=== PATIENT | male | born 1965 | race Caucasian/White ===

== ENCOUNTER 2022-04-02 13:21 | Inpatient (IN) | payer OTHER ==
[~2022-04-02] VITALS: Ht 165.1 cm; Wt 54.9 kg
--- NOTE | 2022-04-02 13:21 | NUR ---
PATIENT WHEELCHAIR ASSISTED TO BED 2.
[2022-04-02 13:24] VITALS: BP 127/78
--- NOTE | 2022-04-02 13:24 | NUR ---
PT BROUGHT TO BED 02 VIA WHEELCHAIR FROM CAR
--- NOTE | 2022-04-02 13:34 | NUR ---
56Y/O MALE BIB C/O OF "RUPTURED HERNIA" STATED THAT HE WAS DIAGNOSED WITH A HERNIA 2 YEARS AGO AND NO SURGERY WAS DONE, 2DAYS AGO NOTED BULGING IN HIS MIDDLE LOWER ABDOMEN AND TODAY INCREASED PAIN IN THE AREA. PT STATES UNCOMFORTABLE WHEN EATING; NAUSEA, NO VOMIT, NO DIFFICULTY USING THE RESTROOM. A/OX4, GCS-15; UNLABORED BREATHING, SPEAKING IN FULL SENTENCES; AMBULATORY WITHOUT ASSISTANCE. NKA PMH: HERNIA, HTN
--- NOTE | 2022-04-02 13:37 | NUR ---
ER MD AT BEDSIDE EXAMINING PT
[2022-04-02] MEDS ORDERED: MORPHINE SULFATE 4 MG/ML SYR IVP ONE (13:40)
[2022-04-02] MEDS ORDERED: NACL 0.9% 1,000 ML IV SCH (13:40)
[2022-04-02] MEDS ORDERED: ONDANSETRON 4 MG/2 ML VIAL IVP ONE (13:40)
[2022-04-02] MEDS ORDERED: NACL 0.9% 1,000 ML IV ONE (13:50)
[2022-04-02 14:20] LABS: BASOPHILS % (AUTO) 0.1 % (0.0-2.0); HEMATOCRIT 51.7 % (36-52); HEMOGLOBIN 17.3 g/dL (12.0-18.0); LYMPHOCYTES # (AUTO) 1.3 K/uL (2.0-11.5); LYMPHOCYTES % (AUTO) 8.8 % (20.5-51.1); MEAN CORPUSCULAR HEMOGLOBIN 25 pg (27-31); MEAN CORPUSCULAR HGB CONC 33 g/dL (33-37); MEAN CORPUSCULAR VOLUME 75.5 fL (80-94); MONOCYTES % (AUTO) 13.4 % (1.7-9.3); NEUTROPHILS # (AUTO) 11.5 K/uL (1.8-7.7); NEUTROPHILS % (AUTO) 77.7 % (42.2-75.2); PLATELET COUNT (AUTO) 190 K/uL (140-450); RED BLOOD CELL COUNT(AUTO) 6.86 MIL/uL (4.20-6.10); RED CELL DISTRIBUTION WIDTH 17.8 % (11.6-13.7); WHITE BLOOD COUNT (AUTO) 14.8 K/uL (4.8-10.8)
[2022-04-02 14:25] LABS: PROTHROMBIN TIME 12.7 secs (10.8-13.4)
[2022-04-02 14:27] LABS: ALBUMIN 3.7 g/dL (3.4-5.0); ANION GAP 20.8 (8-16); CARBON DIOXIDE 23.3 mmol/L (21-32); CREATININE 3.5 mg/dL (0.6-1.3); POTASSIUM 4.1 mmol/L (3.5-5.1); TOTAL BILIRUBIN 1.2 mg/dL (0.0-1.0)
--- NOTE | 2022-04-02 14:50 | NUR ---
PT TAKEN TO CT
--- NOTE | 2022-04-02 14:56 | NUR ---
PT RETURNED FROM CT
[2022-04-02] MEDS ORDERED: cefTRIAXone 1,000 MG VIAL ONE (15:04)
--- NOTE | 2022-04-02 17:11 | NUR ---
xray at bedside
--- NOTE | 2022-04-02 17:11 | NUR ---
COVID/JACINDA SWAB AND URINE COLLECTED AND WALKED TO LAB
[2022-04-02] MEDS ORDERED: DOCUSATE SODIUM 100 MG GELCAP PO PRN (17:15)
[2022-04-02] MEDS ORDERED: guaiFENesin DM 200/20 MG-10 ML 10 ML UDC PO PRN (17:15)
[2022-04-02] MEDS ORDERED: MORPHINE SULFATE 2 MG/ML SYR IVP PRN (17:15)
[2022-04-02] MEDS ORDERED: ZOLPIDEM 5 MG TAB PO PRN (17:15)
[2022-04-02] MEDS ORDERED: HYDROcodone/APAP 7.5/325 MG 1 TAB PO PRN (17:15)
[2022-04-02] MEDS ORDERED: POTASSIUM CHLORIDE 10 MEQ TABER PO PRN (17:15)
[2022-04-02] MEDS ORDERED: ACETAMINOPHEN 325 MG TAB PO PRN (17:15)
[2022-04-02] MEDS ORDERED: ONDANSETRON 4 MG/2 ML VIAL IM/IVP PRN (17:15)
--- NOTE | 2022-04-02 17:23 | NUR ---
XRAY AT BEDSIDE
--- NOTE | 2022-04-02 17:26 | NUR ---
AUTOMATIC MACHINES SUPERVISOR AT BEDSIDE
[2022-04-02 17:54] LABS: APPEARANCE,URINE CLEAR (CLEAR); BILIRUBIN,URINE NEGATIVE (NEGATIVE); BLOOD, URINE 1+ (NEGATIVE); COLOR,URINE YELLOW (YELLOW); LEUKOCYTE ESTERASE ,URINE NEGATIVE (NEGATIVE); NITRITE, URINE NEGATIVE (NEGATIVE); UGLUCOSE TRACE (NEGATIVE)
--- NOTE | 2022-04-02 17:54 | NUR ---
NG TUBE HELD UNTIL [id number] IS COMPLETE. RADIOLOGY WILL NOTIFY. JOE CASTAÑEDA MADE AWARE.
--- NOTE | 2022-04-02 17:57 | NUR ---
XRAY AT BEDSIDE
[2022-04-02] MEDS ORDERED: NADO20TA PO (18:05)
[2022-04-02] MEDS ORDERED: AMLO5TAB PO (18:05)
[2022-04-02 18:30] VITALS: BP 122/64
--- NOTE | 2022-04-02 18:30 | NUR ---
Patient will be admitted to care of DR HWANG. Admited to Med/Surg. Will go to room 105B. Belongings list completed. Report to DREAD DUMONT.
[2022-04-02] MEDS: DEXT 5% /NACL 0.9% 1,000 ML IV SCH (18:40)
[2022-04-02 18:43] LABS: PROTHROMBIN TIME 12.9 secs (10.8-13.4)
[2022-04-02 18:54] LABS: AMYLASE 82 U/L (25-115); CHOL/HDL RATIO 2.8 (1-4.5); FREE T4 (FREE THYROXINE) 1.23 ng/dL (0.76-1.46); HDL CHOLESTEROL 44 mg/dL (40-60); LDL (CALC) 56 mg/dL (60-100); MAGNESIUM 2.4 mg/dL (1.8-2.4); PHOSPHORUS 6.7 mg/dL (2.5-4.9); THYROID STIMULATING HORMONE 0.16 uIU/mL (0.34-3.74); TRIGLYCERIDES 125 mg/dL (30-150)
--- NOTE | 2022-04-02 19:00 | NUR ---
RECEIVED PT FROM ED VIA [facility] AT 1830. BEDSIDE REPORT GIVEN BY DREAD MORENO. AT BEDSIDE. PER REPORT PT FOR NGT INSERTION, PT AND IS AWARE. PT IS AWAKE, ALERT, ABLE TO MAKE NEEDS KNOWN. ON O2 1L NC WITH O2 SAT AT 90% INCREASE O2 TO 2L, SATING BETWEEN 90-92% NO C/O PAIN AT THIS TIME. PT NOTED WITH LARGE DISTENDED ABDOMEN. PT WITH C/O NAUSEA/VOMITING, WILL MEDICATE. MRSA SWAB DONE. WITH RAC 20G WITH D5NS AT 100CC/HR. EDUCATED ON HOW TO USE CALL LIGHT. ALL SAFETY MEASURES IN PLACE.
--- NOTE | 2022-04-02 19:10 | NUR ---
PT COMPLAINED OF NAUSEA WITH CONSTANT RETCHING. ZOFRAN ADMIN IV ORDERED. ONGOING PT MONITORING TO BE CONTINUED.
--- NOTE | 2022-04-02 19:30 | NUR ---
RECEIVED PT FROM AM NURSE FOR CONTINUITY OF CARE. PT IS STABLE
--- NOTE | 2022-04-02 20:31 | NUR ---
URINE SPECIMEN COLLECTED.
--- NOTE | 2022-04-02 20:52 | NUR ---
NG TUBE PLACED WAITING FOR X RAY CONFIRMATION, RADIOLOGY IS AWARE.
[2022-04-02 21:07] LABS: BARBITURATE, URINE NEGATIVE ng/ml (NEG <=200); BENZODIAZEPINE, URINE NEGATIVE ng/mL (NEG <=200); CANNABINOID, URINE NEGATIVE ng/mL (NEG <=50); COCAINE, URINE NEGATIVE ng/mL (NEG <=300); OPIATE, URINE POSITIVE ng/mL (NEG <=2000); PHENCYCLIDINE SCREEN,URINE NEGATIVE ng/mL (NEG <=25)
--- NOTE | 2022-04-03 01:00 | NUR ---
PATIENT ASLEEP,BREATHING EVEN AND UNLABORED ,NO DISTRESS NOTED
[2022-04-03] MEDS: DEXT 5% /NACL 0.9% 1,000 ML IV SCH ×3 (03:42→22:23)
[2022-04-03 04:00] VITALS: BP 130/96
--- NOTE | 2022-04-03 04:16 | NUR ---
PATIENT ASLEEP,ALL SAFETY MEASURES IN PLACE,CALL LIGHT WITHIN EASY REACH
[2022-04-03] MEDS ORDERED: metroNIDAZOLE 500 MG/NS PREMIX 100 ML IV SCH (05:00)
--- NOTE | 2022-04-03 06:00 | NUR ---
PATIENT IS AWAKE, NO COMPLAIN OF PAIN AT THIS TIME,NO DISTRESS NOTED
--- NOTE | 2022-04-03 07:05 | NUR ---
RECEIVED REPORT FROM MOTOR POLARIZER NURSE FOR CONTINUITY OF CARE. PATIENT AWAKE NO DISTRESS NOTED. RESPIRATION EVEN AND NOT LABORED ON 2L/VIA NASAL CANULA. IV SITE ON RIGHT AC ASH 20 RUNNING D5 NS AT 100 CC/HOUR. CONTINUE TO BE NPO. CALL LIGHT WITH IN EASY REACH.
[2022-04-03 07:07] LABS: ANION GAP 17.3 (8-16); CARBON DIOXIDE 24.8 mmol/L (21-32); CREATININE 2.4 mg/dL (0.6-1.3); POTASSIUM 3.1 mmol/L (3.5-5.1)
--- NOTE | 2022-04-03 07:10 | NUR ---
RECEIVED LAB RESULT OF BUN 87 AND CREATININE OF 2.4 WAITING FOR RESPONSE.
[2022-04-03 07:24] LABS: BASOPHILS % (AUTO) 0.1 % (0.0-2.0); HEMATOCRIT 49.7 % (36-52); HEMOGLOBIN 16.7 g/dL (12.0-18.0); LYMPHOCYTES # (AUTO) 0.9 K/uL (2.0-11.5); LYMPHOCYTES % (AUTO) 7.6 % (20.5-51.1); MEAN CORPUSCULAR HEMOGLOBIN 25 pg (27-31); MEAN CORPUSCULAR HGB CONC 34 g/dL (33-37); MEAN CORPUSCULAR VOLUME 75.6 fL (80-94); MONOCYTES # (AUTO) 1.8 K/uL (0.8-1.0); MONOCYTES % (AUTO) 14.9 % (1.7-9.3); NEUTROPHILS # (AUTO) 9.2 K/uL (1.8-7.7); NEUTROPHILS % (AUTO) 77.4 % (42.2-75.2); PLATELET COUNT (AUTO) 203 K/uL (140-450); RED BLOOD CELL COUNT(AUTO) 6.58 MIL/uL (4.20-6.10); RED CELL DISTRIBUTION WIDTH 17.4 % (11.6-13.7); WHITE BLOOD COUNT (AUTO) 11.9 K/uL (4.8-10.8)
[2022-04-03 08:00] VITALS: BP 138/76
--- NOTE | 2022-04-03 08:00 | NUR ---
Patient's Plan of Care was discussed and reviewed with STAFF NURSE ICU RESOURCE TEAM: BESSY. WILL CONTINUE WITH CURRENT POC.
[2022-04-03] MEDS: PANTOPRAZOLE 40 MG TABEC PO SCH (08:15)
--- NOTE | 2022-04-03 08:21 | NUR ---
COMPLAIN OF ABDOMINAL PAIN 05/10 REQUESTED FOR NORCO GIVEN AND ALSO PANTOPRAZOLE IS GIVEN. NGT ON INTERMITTENT SUCTIONING NOTED WITH GREENISH LIQUID.
--- NOTE | 2022-04-03 08:32 | NUR ---
DR. HWANG RESPONDED FOR NEPHRO CONSULT WITH DR. DEEDEE MANRIQUEZ ORDER BNOTED AND CARRIED OUT RESIDENT AWARE.
--- NOTE | 2022-04-03 09:27 | NUR ---
PATIENT HAS BEEN SCREENED AND CATEGORIZED MODERATE NUTRITION RISK. PATIENT WILL BE SEEN WITHIN 3-5 DAYS OF ADMISSION. 04/03/22-04/07/[address]
[2022-04-03] MEDS ORDERED: LACTATED RINGERS 1,000 ML IV SCH (09:55)
--- NOTE | 2022-04-03 10:35 | NUR ---
GIVEN K DUR DUE TO POTASSIUM LEVEL OF 3.1 TOLERATED WELL WITH SMALL SIP OF WATER.
--- NOTE | 2022-04-03 12:23 | NUR ---
DR. WEBSTER EVALUATED PATIENT WITH ORDER FOR ALBUMIN HUMAN, CHLORIDE, CREATININE AN URINE NA RANDOM AND KIDNEY US.
[2022-04-03] MEDS ORDERED: ALBUMIN HUMAN 5 % 250 ML IV SCH (13:00)
--- NOTE | 2022-04-03 13:12 | NUR ---
RN GAVE ALBUMIN HUMAN. PATIENT ASLEEP BUT ABLE TO WAKE UP EASILY ON NGT FOR INTERMITTENT SUCTIONING. ABDOMEN STILL VERY DISTENDED. CALL LIGHT WITH IN EASY REACH.
[2022-04-03] MEDS ORDERED: HYDROmorphone 1 MG/ML AMP IVP PRN ×2 (13:15→19:30)
--- NOTE | 2022-04-03 14:00 | NUR ---
DR. VAZ SEE AND EXAMINE PATIENT. INFORM PATIENT THAT HE GOING TO DO SURGERY ON HIM DR. VAZ EXPLAINED THE PROCEDURE VERBALIZED UNDERSTANDING AND DR. VAZ OBTAINED CONSENT FROM THE PATIENT.
[2022-04-03] MEDS ORDERED: PROPOFOL 200 MG/20 ML VIAL IV ONE (14:45)
[2022-04-03] MEDS ORDERED: SUCCINYLCHOLINE CHLORIDE 200 MG/10 ML VIAL IVP ONE (14:45)
[2022-04-03] MEDS ORDERED: fentaNYL citrate 0.05 MG/ML VIAL ONE (14:45)
--- NOTE | 2022-04-03 15:15 | NUR ---
PATIENT LEFT THE ROOM WHEELED BY OR NURSES ON A GURNEY FOR HIS SURGERY PATIENT ON STABLE CONDITION.
[2022-04-03] MEDS ORDERED: PIPERACILLIN/TAZOBACTAM 3.375 GM VIAL IV ONE ×2 (15:25→22:19)
[2022-04-03] MEDS ORDERED: SEVOFLURANE 250 ML BTL INH ONE (16:00)
[2022-04-03] MEDS ORDERED: ROCURONIUM 50 MG/5 ML VIAL IV ONE ×2 (16:05→17:04)
[2022-04-03] MEDS ORDERED: ePHEDrine 50 MG/ML VIAL ONE (16:08)
[2022-04-03] MEDS ORDERED: PHENYLEPHRINE 10 MG/ML VIAL ONE (16:19)
[2022-04-03] MEDS ORDERED: HYDROmorphone PFS 2 MG/ML SYR ONE (17:40)
[2022-04-03] MEDS ORDERED: DEXAMETHASONE 4 MG/ML VIAL ONE (17:42)
[2022-04-03] MEDS ORDERED: ceFAZolin 1,000 MG VIAL ONE (18:08)
[2022-04-03] MEDS ORDERED: SUGAMMADEX SODIUM 200 MG/2 ML VIAL IV ONE ×2 (18:33→19:08)
--- NOTE | 2022-04-03 19:22 | NUR ---
PATIENT STILL AT OR FOR HIS SURGERY. GAVE REPORT TO [employer] DEVELOPMENT N8URSE FOR CONTINUITY OF CARE.
--- NOTE | 2022-04-03 19:23 | NUR ---
RECEIVED REPORT FROM OUTGOING NURSE, PT STILL IN OR.
[2022-04-03] MEDS ORDERED: ONDANSETRON 4 MG/2 ML VIAL IVP PRN (19:30)
[2022-04-03] MEDS ORDERED: ALBUTEROL 0.083% 2.5 MG/3 ML NEBU INH ONE ×2 (19:30→19:31)
[2022-04-03] MEDS ORDERED: LABETALOL 100 MG/20 ML VIAL ONE (19:33)
[2022-04-03] MEDS ORDERED: ACETAMINOPHEN 325 MG TAB PO PRN (19:35)
[2022-04-03 21:30] VITALS: BP 121/81
--- NOTE | 2022-04-03 21:30 | NUR ---
PT BACK FROM OR PER SUNDAR, S/P EXPLORATORY LAPAROTOMY, RESECTION OF SEGMENT OF ISCHEMIC BOWEL, REPAIR OF VENTRAL HERNIA, PT ASLEEP, OPEN EYES TO NAME, DENIES ANY PAIN, ABDOMINAL DRESSING DRY AND INTACT, WITH LEFT ОЛЕГ DRAIN TO BULB SUCTION WITH 2OML SANGUINOUS DRAINAGE NOTED, SANTANA CATHETER IN PLACE WITH CLEAR YELLOW OUTPUT, NGT IN PLACE ATTACHED TO LOW INTERMITTENT SUCTION WITH IMMEDIATE OUTPUT OF 100ML BROWNISH GREEN OUTPUT, MAINTAINED ON NPO, IVF INFUSING WELL, POST OP VITAL SIGNS TAKEN PER PROTOCOL, CALL LIGHT WITHIN REACH.
[2022-04-03] MEDS: metroNIDAZOLE 500 MG/NS PREMIX 100 ML IV SCH (22:05)
[2022-04-03] MEDS: PIPERACILLIN/TAZOBACTAM 3.375 GM in DEXTROSE 5% 50 ML IV SCH (23:07)
--- NOTE | 2022-04-03 23:15 | NUR ---
DUE ZOSYN IVPB ADMINISTERED, J-P DRAIN EMPTIED WITH 30ML SANGUINOUS DRAINAGE, DENIES ANY PAIN, NO SOB NOTED, MONITORED CLOSELY.
--- NOTE | 2022-04-03 23:20 | NUR ---
RECEIVED PATIENT FROM JANETTE [place]. PT IS AWAKE WITH O2 AT 2L NC SATING AT 92%. NO ACUTE DISTRESS NOTED. ZOSYN INFUSING ON THE RAC GAUGE 20. NGT IN PLACE. SANTANA CATHETER INTACT DRAINING CLEAR YELLOW URINE. NO COMPLAINTS OF PAIN AT THIS TIME. ABDOMINAL BINDER IN PLACE. ALL SAFETY MEASURES IN PLACE. CALL LIGHT WITHIN REACH. WILL CONTINUE TO MONITOR.
--- NOTE | 2022-04-03 23:30 | NUR ---
PT AWAKE, NO SIGNS OF DISTRESS, REPORT GIVEN TO DREAD GARCIA FOR CONTINUITY OF CARE.
[2022-04-04] VITALS: BP 117/79
--- NOTE | 2022-04-04 | NUR ---
PATIENT HAS DRY MOUTH, ICE CHIPS GIVEN IN SMALL AMOUNT. V/S STABLE.
[2022-04-04] MEDS: HYDROmorphone 1 MG/ML AMP IVP PRN ×2 (02:19→21:10)
--- NOTE | 2022-04-04 02:19 | NUR ---
PATIENT COMPLAINED OF SEVERE POST OP PAIN 8/10 , MEDICATED PER MD ORDER.
[2022-04-04] MEDS ORDERED: PIPERACILLIN/TAZOBACTAM 3.375 GM VIAL IV ONE (04:25)
[2022-04-04] MEDS: PIPERACILLIN/TAZOBACTAM 3.375 GM in DEXTROSE 5% 50 ML IV SCH ×3 (04:31→20:48)
--- NOTE | 2022-04-04 04:31 | NUR ---
SCHEDULED ZOSYN ADMINISTERED ORDERED BY
[2022-04-04] MEDS: metroNIDAZOLE 500 MG/NS PREMIX 100 ML IV SCH ×3 (04:59→21:38)
--- NOTE | 2022-04-04 04:59 | NUR ---
FLAGYL GIVEN PER MD ORDER. NO COMPLAINT OF PAIN AT THIS TIME. SMALL ICE CHIPS GIVEN PER PATIENT REQUEST.
[2022-04-04] MEDS: DEXT 5% /NACL 0.9% 1,000 ML IV SCH (05:20)
[2022-04-04 06:59] LABS: ANION GAP 12.5 (8-16); CARBON DIOXIDE 26.4 mmol/L (21-32); CREATININE 2.2 mg/dL (0.6-1.3); POTASSIUM 3.9 mmol/L (3.5-5.1)
--- NOTE | 2022-04-04 07:12 | NUR ---
MINI FROM LAB CALLED REPORTING CRITICAL LAB VALUE: CREATININE 2.[address] REPORT[address] HWANG WITH NO NEW ORDER. WILL COME SEE THE PATIENT TODAY.
[2022-04-04 07:15] LABS: EOSINOPHILS % (AUTO) 0.1 % (0.0-4.0); HEMATOCRIT 42.8 % (36-52); LYMPHOCYTES # (AUTO) 0.7 K/uL (2.0-11.5); MEAN CORPUSCULAR HEMOGLOBIN 25 pg (27-31); MEAN CORPUSCULAR HGB CONC 33 g/dL (33-37); MEAN CORPUSCULAR VOLUME 77.1 fL (80-94); MONOCYTES % (AUTO) 12.9 % (1.7-9.3); NEUTROPHILS # (AUTO) 6.3 K/uL (1.8-7.7); PLATELET COUNT (AUTO) 107 K/uL (140-450); RED BLOOD CELL COUNT(AUTO) 5.55 MIL/uL (4.20-6.10); RED CELL DISTRIBUTION WIDTH 17.2 % (11.6-13.7); WHITE BLOOD COUNT (AUTO) 8.1 K/uL (4.8-10.8)
--- NOTE | 2022-04-04 07:55 | NUR ---
PATIENT IS STABLE. BEDSIDE ENDORSEMENT GIVEN TO AM NURSE SAUCEDO FOR CONTINUITY OF CARE.
[2022-04-04 08:00] VITALS: BP 122/75
[2022-04-04] MEDS: PANTOPRAZOLE 40 MG TABEC PO SCH (08:27)
[2022-04-04] MEDS: POTASSIUM CHL 20 MEQ/D5-1/2NS 1,000 ML IV SCH ×2 (08:33→22:18)
[2022-04-04 09:07] LABS: T4 (THYROXINE) 8.4 ug/dL (4.5-12.0)
--- NOTE | 2022-04-04 11:24 | NUR ---
DC PLANNING: RECEIVED A CALL FROM [facility] [phone] SPOKE WITH MED UPDATED HER PT'S CLINICAL, SHE REQUESTED ALL THE CLINICALS TO BE FAXED TO [phone], AND STATED PT CAN STAY UNTIL TOMORROW HOW EVER IF PATIENT WON'T BE DISCHARGED BY TOMORROW WILL PROCEED THE TRANSFER TO [facility]. PER MED ONCE SHE RECEIVE THE CLINICALS WILL CREAT THE AUTH. CM TO FOLLOW
--- NOTE | 2022-04-04 15:59 | NUR ---
RECEIVE ENDORSEMENT FROM PM SHIFT NURSE THAT PATIENT REST IN BED, PIV RAC 20G PATENT, NG CONNECT TO WALL SUCTION INTERMEDIATE, ОЛЕГ TUBE DRAINING, SURGICAL DRESSING INTACT, SANTANA IN PLACE DRAINING. WILL CONTINUE TO MONITOR
[2022-04-04 16:00] VITALS: BP 133/81
--- NOTE | 2022-04-04 19:59 | NUR ---
ENDORSE PT TO PM SHIFT NURSE THAT PATIENT REST IN BED, PIV RAC 20G PATENT,SALINE LOCK, IV D5 1/2 20MEQ KCL INFUSING AT 70 ML/HR VIA R. FOREARM 20G, NG CONNECT TO WALL SUCTION INTERMEDIATE, ОЛЕГ TUBE DRAINING, SURGICAL DRESSING INTACT, SANTANA IN PLACE DRAINING
--- NOTE | 2022-04-04 20:48 | NUR ---
SCHEDULED ZOSYN GIVEN PER MD ORDER. PT AAOX4. BREATHING NORMAL. PT STABLE.
--- NOTE | 2022-04-04 21:10 | NUR ---
PATIENT COMPLAINED OF SEVERE ABDOMINAL PAIN, MEDICATED WITH DILAUDID PRN. Addendum: 04/05/22 at 0444 by Elissa Barrios RN RN ANAM PT.
--- NOTE | 2022-04-04 21:39 | NUR ---
FLAGYL IVPB GIVEN SCHEDULED PER MD ORDER.
[2022-04-05] VITALS: BP 134/77
[2022-04-05] MEDS: POTASSIUM CHL 20 MEQ/D5-1/2NS 1,000 ML IV SCH ×2 (02:22→11:19)
--- NOTE | 2022-04-05 02:28 | NUR ---
PT AWAKE, ALERT. PATIENT NEEDS ATTENDED TO. NO SOB. CALL LIGHT WITHIN REACH.
[2022-04-05] MEDS: PIPERACILLIN/TAZOBACTAM 3.375 GM in DEXTROSE 5% 50 ML IV SCH ×3 (04:35→21:31)
--- NOTE | 2022-04-05 04:40 | NUR ---
ADMINISTERED MEDICATIONS PER MD ORDER. PT IS AWAKE CALLING ON THE PHONE.
[2022-04-05] MEDS: metroNIDAZOLE 500 MG/NS PREMIX 100 ML IV SCH ×3 (05:20→22:16)
[2022-04-05 07:08] LABS: BASOPHILS % (AUTO) 0.2 % (0.0-2.0); EOSINOPHILS # (AUTO) 0.1 K/uL (0-0.4); EOSINOPHILS % (AUTO) 0.9 % (0.0-4.0); HEMATOCRIT 42.1 % (36-52); HEMOGLOBIN 13.7 g/dL (12.0-18.0); LYMPHOCYTES # (AUTO) 0.5 K/uL (2.0-11.5); LYMPHOCYTES % (AUTO) 8.4 % (20.5-51.1); MEAN CORPUSCULAR HEMOGLOBIN 25 pg (27-31); MEAN CORPUSCULAR HGB CONC 33 g/dL (33-37); MEAN CORPUSCULAR VOLUME 78.1 fL (80-94); MONOCYTES # (AUTO) 0.7 K/uL (0.8-1.0); MONOCYTES % (AUTO) 11.5 % (1.7-9.3); NEUTROPHILS # (AUTO) 5.1 K/uL (1.8-7.7); PLATELET COUNT (AUTO) 77 K/uL (140-450); RED CELL DISTRIBUTION WIDTH 17.6 % (11.6-13.7); WHITE BLOOD COUNT (AUTO) 6.4 K/uL (4.8-10.8)
[2022-04-05 07:09] LABS: ANION GAP 7.3 (8-16); CARBON DIOXIDE 29.5 mmol/L (21-32); CREATININE 1.5 mg/dL (0.6-1.3); POTASSIUM 3.8 mmol/L (3.5-5.1)
--- NOTE | 2022-04-05 07:31 | NUR ---
PATIENT IS STABLE. NO FEVER, NO SOB, BREATHING NORMAL ON 2L NC. ENDORSED TO AM NURSE FOR CONTINUITY OF CARE.
[2022-04-05] MEDS: PANTOPRAZOLE 40 MG TABEC PO SCH (09:00)
[2022-04-05] MEDS: POTASSIUM CHLORIDE 30 MEQ in DEXTROSE 5% 1,000 ML IV SCH ×2 (18:30→23:26)
--- NOTE | 2022-04-05 19:25 | NUR ---
RECEIVED REPORT FROM AM SHIFT DREAD ABEBE. PATIENT AAOX4 RESTING COMFORTABLY IN BED ON ROOM AIR. BREATHING NORMAL. SYMMETRICAL RISE AND FALL OF CHEST. ОЛЕГ DRAIN IN PLACE DRAINING BLOODY OUTPUT SCANT IN AMOUNT. NO NGT. NO SANTANA CATHETER. REMINDED PATIENT TO BE NPO EXCEPT ICE CHIPS. ALL SAFETY PRECAUTIONS ARE IN PLACE. CALL LIGHT WITHIN REACH. WILL CONTINUE TO MONITOR.
--- NOTE | 2022-04-05 21:31 | NUR ---
SCHEDULED MEDICATIONS ADMINISTERED PER MD ORDER. PATIENT IS SLEEPING, NO DISTRESS NOTED.
[2022-04-06] VITALS: BP 158/95
[2022-04-06] MEDS: PIPERACILLIN/TAZOBACTAM 3.375 GM in DEXTROSE 5% 50 ML IV SCH ×2 (05:00→12:38)
[2022-04-06] MEDS: metroNIDAZOLE 500 MG/NS PREMIX 100 ML IV SCH ×2 (05:56→13:34)
--- NOTE | 2022-04-06 07:22 | NUR ---
PATIENT IS STABLE. ON CLEAR LIQUID DIET. BEDSIDE ENDORSEMENT GIVEN TO AM NURSE FOR CONTINUITY OF CARE.
[2022-04-06 07:23] LABS: BASOPHILS % (AUTO) 0.1 % (0.0-2.0); EOSINOPHILS % (AUTO) 0.5 % (0.0-4.0); HEMATOCRIT 41.8 % (36-52); HEMOGLOBIN 13.7 g/dL (12.0-18.0); LYMPHOCYTES # (AUTO) 0.4 K/uL (2.0-11.5); LYMPHOCYTES % (AUTO) 8.9 % (20.5-51.1); MEAN CORPUSCULAR HEMOGLOBIN 25 pg (27-31); MEAN CORPUSCULAR HGB CONC 33 g/dL (33-37); MEAN CORPUSCULAR VOLUME 77.6 fL (80-94); MONOCYTES # (AUTO) 0.3 K/uL (0.8-1.0); MONOCYTES % (AUTO) 8.3 % (1.7-9.3); NEUTROPHILS # (AUTO) 3.4 K/uL (1.8-7.7); NEUTROPHILS % (AUTO) 82.2 % (42.2-75.2); PLATELET COUNT (AUTO) 60 K/uL (140-450); RED BLOOD CELL COUNT(AUTO) 5.38 MIL/uL (4.20-6.10); RED CELL DISTRIBUTION WIDTH 17.2 % (11.6-13.7); WHITE BLOOD COUNT (AUTO) 4.1 K/uL (4.8-10.8)
--- NOTE | 2022-04-06 07:23 | NUR ---
RECEIVED REPORT FROM TILE SETTER NURSE FOR CONTINUITY OF CARE. PATIENT ASLEEP NO DISTRESS NOTED. RESPIRATION EVEN AND NOT LABORED NO SHORTNESS OF BREATH. ON ROOM AIR. IV SITE ON RIGHT FOREARM AND RIGHT AC ASH 20. CALL LIGHT WITH IN EASY REACH.
[2022-04-06 07:43] LABS: ANION GAP 10.6 (8-16); CARBON DIOXIDE 25.1 mmol/L (21-32); CREATININE 1.4 mg/dL (0.6-1.3); POTASSIUM 3.7 mmol/L (3.5-5.1)
[2022-04-06 08:00] VITALS: BP 150/99
--- NOTE | 2022-04-06 08:00 | NUR ---
Patient's Plan of Care was discussed and reviewed with DIE MAKER: BESSY
[2022-04-06] MEDS: PANTOPRAZOLE 40 MG TABEC PO SCH (08:32)
--- NOTE | 2022-04-06 08:37 | NUR ---
GAVE PROTONIX ORALLY TOLERATED WELL. EMPTY CHRISTIANA GARCIA OBTAINED 60 ML OF DRAINAGE LIGHT RED IN COLOR. PATIENT DENIES PAIN. CALL LIGHT WITH IN EASY REACH.
[2022-04-06] MEDS: POTASSIUM CHLORIDE 30 MEQ in DEXTROSE 5% 1,000 ML IV SCH (09:00)
[2022-04-06] MEDS ORDERED: AMOX-999 PO (10:08)
[2022-04-06] MEDS ORDERED: METR-520 PO (10:08)
[2022-04-06] MEDS ORDERED: ACET-9533 PO (10:08)
[2022-04-06 11:40] VITALS: BP 150/89
[2022-04-06] MEDS ORDERED: IBUPROFEN 600 MG TAB PO PRN (12:15)
--- NOTE | 2022-04-06 12:18 | NUR ---
INFORM DR. VAZ THAT PATIENT HAS DISCHARGE ORDER IF ITS OKAY WITH HIM AND HE ASKED IF PATIENT HAD BOWEL MOVEMENT ALREADY. INFORM HIM THAT PATIENT REPORTED THAT HE HAS BM X2 YESTERDAY AND 2X TODAY. PATIENT DENIES PAIN OR ANY DISCOMFORT. HE GAVE HIS TEL. INSTRUCTED FOR TO CALL THE OFFICE FOR FOLLOW UP AND HE WILL REMOVE THE JACKSONPRATT.
--- NOTE | 2022-04-06 15:14 | NUR ---
PATIENT ALERT ORIENTED DEMONSTRATED TO AND PATIENT ON HOW TO EMPTY CHRISTIANA GARCIA AND HOW TO CHANGE DRESSING ON SURGICAL SITE. DISCHARGE PACKET GIVEN WITH INSTRUCTION VERBALIZED UNDERSTANDING. REMOVED NAME BAND AND IV SITE WITH CATHETER INTACT. WHEELED PATIENT TO THEIR PRIVATE VEHICLE ALL BELONGING TAKE. PATIENT ON STABLE CONDITION.
== END 2022-04-06 15:15 | disposition home or self-care (01) | DRG 330 ==
LOC: MED 13:21 → MMU 17:47 → MTU 18:15
PROVIDERS: ADMIT Student in an Organized Health Care Education/Training Program; ATTEND Student in an Organized Health Care Education/Training Program
PROC: 0DB80ZZ Excision of Small Intestine, Open Approach (ICD-10-PCS; principal; 2022-04-04)
PROC: 0DBU0ZZ Excision of Omentum, Open Approach (ICD-10-PCS; 2022-04-04)
PROC: 0WQF4ZZ Repair Abdominal Wall, Percutaneous Endoscopic Approach (ICD-10-PCS; 2022-04-04)
PROC: 0D9880Z Drainage of Small Intestine with Drainage Device, Via Natural or Artificial Opening Endoscopic (ICD-10-PCS; 2022-04-04)
DX: K43.6 Other and unspecified ventral hernia with obstruction, without gangrene (principal); K55.9 Vascular disorder of intestine, unspecified; I10 Essential (primary) hypertension; K74.60 Unspecified cirrhosis of liver; K80.20 Calculus of gallbladder without cholecystitis without obstruction; E87.6 Hypokalemia; E83.51 Hypocalcemia; K76.9 Liver disease, unspecified; Z20.822 Contact with and (suspected) exposure to COVID-19; K66.0 Peritoneal adhesions (postprocedural) (postinfection); Z79.899 Other long term (current) drug therapy
CPT/HCPCS: 36415; 71045; 74018; 74250; 76770; 80048; 80053; 80305; 81003; 82150; 82436; 82570; 83036; 83605; 83690; 83735; 83880; 84100; 84300; 84436; 84439; 84443; 84479; 84484; 85025; 85610; 85730; 86886; 86900; 86901; 87040; 87081; 88304; 88309; 94640; 96361; 96365; 96375; 96376; 99285; J0330; J0690; J0696; J1100; J1170; J2270; J2370; J2405; J2543; J2704; J3010; J3480; J3490; J7030; J7060; J7613; P9041; Q0092